=== PATIENT | male | born 1950 | race Caucasian/White ===

== ENCOUNTER → 2017-06-14 | Outpatient (CLI) | payer MEDICARE, OTHER ==
[~2017-06-14] MED LIST: BENA1TAB49 PO; BENA1TAB59 PO; DIA5 PO; EDOX60TA; ENOX100D5 SQ; HYDR-4309 PO; MULT-885 PO; OXYC-865 PO; RIVA20TA PO; WARF-1 PO
--- NOTE | 2017-06-14 14:10 | EKG ---
FACILITY: [facility] [place] PATIENT NAME: SELINA MADRID : [id number] MR: [id number] V: [id number] EXAM DATE: ORDERING PHYSICIAN: LINDA MERLOS TECHNOLOGIST: PARIS Bains Reason : PREOP Blood Pressure : / mmHG Vent. Rate : 072 BPM Atrial Rate : 072 BPM P-R Int : 160 ms QRS Dur : 096 ms QT Int : 402 ms P-R-T Axes : 070 062 054 degrees QTc Int : 440 ms Normal sinus rhythm Normal ECG When compared with ECG of 30-JUL-2014 15:53, premature atrial complexes are no longer present Referred By: Confirmed By:
[2017-06-14 14:11] LABS: PLATELET COUNT, AUTOMATED 224 K/uL (150-450)
[2017-06-14 14:15] LABS: INR 1.58
--- NOTE | 2017-06-14 15:14 | RADIOLOGY IMAGING REPORT ---
FACILITY: [facility] PATIENT NAME: Lisa Lagunas : 1950 MR: [id number] V: [id number] EXAM DATE: ORDERING PHYSICIAN: LINDA MERLOS TECHNOLOGIST: [facility] Patient: Lisa Lagunas : 1950 Visit/Account:[id number] Date of Sevice: 06/14/2017 Exam type: CHEST PA AND LAT History: pre op, htn Comparison: None. Findings: The lungs are free of acute effusions, infiltrates or edema. There is no evidence of a pneumothorax or pneumomediastinum.. There are mild spondylotic changes of the thoracic spine IMPRESSION: 1. No acute cardiopulmonary process is seen Report Dictated By: Violeta Weeks MD at 06/14/2017 3:08 PM Report E-Signed By: Violeta Weeks MD at 06/14/2017 3:09 PM WSN:[email or web address]
== END ==
LOC: LAB 13:40
PROVIDERS: ATTEND Internal Medicine
DX: Z01.818 Encounter for other preprocedural examination (principal); Z86.718 Personal history of other venous thrombosis and embolism; I10 Essential (primary) hypertension; I82.402 Acute embolism and thrombosis of unspecified deep veins of left lower extremity
CPT/HCPCS: 36415; 71046; 81001; 82040; 82247; 82310; 82374; 82435; 82565; 82947; 84075; 84132; 84155; 84295; 84443; 84450; 84460; 84520; 85025; 85610; 85730

== ENCOUNTER → 2018-05-31 | Outpatient (CLI) | payer MEDICARE, OTHER ==
[~2018-05-31] MED LIST changes: +ATOR10TA24 PO; +BENA1TAB57 PO; -HYDR-4309 PO; +HYDR-653 PO
[2018-06-01 07:46] LABS: PLATELET COUNT, AUTOMATED 190 K/uL (150-450)
[2018-06-01 09:25] LABS: LDL CHOLESTEROL 60 mg/dl
== END ==
LOC: LAB 12:56
PROVIDERS: ATTEND Internal Medicine
DX: Z12.5 Encounter for screening for malignant neoplasm of prostate (principal); E78.5 Hyperlipidemia, unspecified; I10 Essential (primary) hypertension
CPT/HCPCS: 36415; 82040; 82247; 82310; 82374; 82435; 82465; 82565; 82947; 83718; 84075; 84132; 84153; 84155; 84295; 84402; 84450; 84460; 84478; 84520; 85025